=== PATIENT | female | born 1985 | race African-American/Black ===

== ENCOUNTER 2019-10-05 19:15 | Inpatient (IN) | payer OTHER ==
--- NOTE | 2019-10-05 20:52 | HP ---
Past Medical History - Admission Chief Complaint: srom History of Present Illness: srom History Source: Patient Limitations to Obtaining History: No Limitations - Past Medical History CARPENTER REFRIGERATOR: No: Alzheimer's, CVA, Dementia, Migraine, Multiple Sclerosis, Peripheral Neuropathy, Parkinson's, Seizure, Syncope, TIA, Vertigo, Other Cardiovascular: No: AFIB, Aneurysm, Aortic Insufficiency, Aortic Stenosis, CAD, CHF, Deep Vein Thrombosis, HTN, Hyperlipdemia, ME, Mitral Insufficiency, Mitral Stenosis, Murmur, Pulmonary Hypertension, Other Pulmonary: No: Asthma, Bronchitis, Cancer, COPD, O2 Dependent, Pneumonia, Previously Intubated, Pulmonary Embolus, Pulmonary Fibrosis, Sleep Apnea, Other Gastrointestinal: No: Ascites, Cancer, Constipation, Crohn's Disease, Diverticulitis, Diverticulosis, Esophageal Varices, Gastritis, GERD, GI Bleed, Hemorrhoids, Hiatal Hernia, Inflamatory Bowel Disease, Irritable Bowel Disease, Pancreatitis, Peptic Ulcer Disease, Ulcerative Colitis, Other Hepatobiliary: No: Cirrhosis, Cholelithiasis, Cholecystitis, Choledocholithiasis, Hepatitis A, Hepatitis B, Hepatitis C, Other Renal/: No: Renal Failure, Renal Inusuff, BPH, Cancer, Hematuria, Hemodialysis, Neurogenic Bladder, Renal Calculi, UTI, Other Reproductive: No: Ectopic , Endometriosis, Fibroids, PID, Polycystic Ovary Syndrome, Postmenopausal, Other Heme/Onc: No: Anemia, B12 Deficiency, Bleeding Disorder, Cancer, Current Chemoth erapy, Current Radiation Therapy, Hemochromatosis, Hypercoaguable State, Myeloproliferative Synd, Sickle Cell Disease, Sickle Cell Trait, Thrombocytopenia, Other Infectious Disease: No: AIDS, C-Diff, Herpes Zoster, HIV, MRSA, STD's, Tuberculosis, VREF, Other Psych: No: Addictions, Anxiety, Bipolar, Depression, Panic, Psychosis, Schizophrenia, Other Musculoskeletal: No: Bursitis, Chronic low back pain, Hemiparesis, Hemiplegia, Osteoarthritis, Paraplegia, Other Rheumatology: No: Fibromyalgia, Gout, Lupus, Rheumatoid Arthritis, Sarcoidosis, Vasculitis, Other ENT: No: Allergic Rhinitis, Sinusitis, Other Endocrine: No: William's Disease, Hank's Disease, Diabetes Insipidus, Diabetes Mellitus, Hyperparathyroidism, Hyperthyroidism, Hypothyroidism, Osteopenia, SIADH, Other Dermatology: No: Basal Cell, Cellulitis, Eczema, Melanoma, Psoriasis, Squamous Cell, Other - Past Surgical History Past Surgical History: No: None, AAA Repair, AICD, Amputation, Appendectomy, Arthrosocopy, AV Fistula/Graft, Bariatric Surgery, Breast Biopsy, Bypass, CABG, Carotid Endarterectomy, Cataract Removal, Cholecystectomy, Colectomy, Colonoscopy, Colostomy, Craniotomy, , Cystectomy, Hernia Repair, Hysterectomy, Ileal Conduit, Ileosotomy, Joint Replacement, Kidney Transplant, Laminectomy, Liver Transplant, Mastectomy, Nephrectomy, Oopherectomy, Orchiectomy, Permanent Pacemaker, Prostatectomy, Splenectomy, Stent, Thoracotomy, TURP, Tonsillectomy, Tubal Ligation, Upper Endoscopy, Valve Replacement, Vasectomy, Vein Stripping/Ligation Hx Myomectomy: No Hx Transabdominal Cerclage: No - Advance Directives Advance Directives: Yes: Living Will - Smoking History Smoking history: Never smoked Have you smoked in the past 12 months: No - Alcohol/Substance Use Hx Alcohol Use: No History of Substance Use: reports: None - Social History Usual Living Arrangement: Yes: With Significant Other Do you think of yourself as: Straight/Heterosexual ADL: Independent History of Recent Travel: No Family Medical History Family History: Denies Review of Systems - Review of Systems Constitutional: reports: No Symptoms Eyes: reports: No Symptoms HENT: reports: No Symptoms Neck: reports: No Symptoms Cardiovascular: reports: No Symptoms Respiratory: reports: No Symptoms Gastrointestinal: reports: No Symptoms Genitourinary: reports: No Symptoms Breasts: reports: No Symptoms Reported Musculoskeletal: reports: No Symptoms Integumentary: reports: No Symptoms Neurological: reports: No Symptoms Endocrine: reports: No Symptoms Hematology/Lymphatic: reports: No Symptoms Psychiatric: reports: No Symptoms Physical Exam - Maternity Constitutional: Yes: Well Nourished, No Distress, Calm Eyes: Yes: WNL, Conjunctiva Clear, EOM Intact HENT: Yes: WNL, Atraumatic, Normocephalic Neck: Yes: WNL, Supple, Trachea Midline Cardiovascular: Yes: WNL, Regular Rate and Rhythm Lungs: Clear to auscultation Breast(s): Yes: WNL - Abdominal Exam/OB Fundal Height: 40 Number of Fetuses: Single Presentation: Vertex Contractions: Yes Intensity: Mild Monitor Mode: External Heart Rate (range): 150 Heart Rate Location: [facility] Category: I Accelerations: Uniform Decelerations: None - Vaginal Exam/OB Vaginal Bleeding: No Speculum Exam: No Dilatation (cm): 2 Effacement (%): 50 Amniotic Membrane Status: Ruptured Amniotic Fluid: Yes: Clear Presentation: Vertex/Position Station: -2 - Physical Exam Musculoskeletal: Yes: WNL Extremities: Yes: WNL Edema: Yes Edema: LUE: 1+, RUE: 1+, LLE: 1+, RLE: 1+ Integumentary: Yes: WNL Deep Tendon Reflex Grade: Normal +2 ...Motor Strength: WNL Psychiatric: Yes: WNL, Alert, Oriented Hemorrhage Risk Assessment - Risk Factors Medium Risk Factors: Yes: None High Risk Factors: Yes: None Risk Score: 1 Risk Level: Medium Risk Assessment/Plan for augmentation
[2019-10-05] MEDS ORDERED: DEXTROSE 5%-LACTATED RINGERS 1,000 ML IV SCH (21:00)
[2019-10-05] MEDS ORDERED: OXYTOCIN 30 UNITS in 0.9% NS 30 UNIT/500 ML INFUS.BAG IVPB SCH (21:00)
[2019-10-05 22:02] LABS: BASO % 0.5 % (0-2.0); EOS % 0.3 % (0-4.5); HEMATOCRIT 34.6 % (32.4-45.2); HEMOGLOBIN 11.5 GM/dL (10.7-15.3); MCH 31.2 pg (25.7-33.7); MCHC 33.4 g/dl (32.0-36.0); MEAN CELL VOLUME 93.4 fl (80-96); MEAN PLT VOLUME 10.1 fl (7.5-11.1); MONO % 5.6 % (3.8-10.2); NEUT % 68.6 % (42.8-82.8); PLATELET COUNT 213 K/MM3 (134-434); RDW 13.5 % (11.6-15.6)
[2019-10-05 22:04] VITALS: BMI 33.8
[2019-10-05 22:09] LABS: INR 0.94 (0.83-1.09); PROTHROMBIN TIME (PATIENT) 11.1 SEC (9.7-13.0)
[2019-10-05 22:12] LABS: ACTIVATED PTT 27.1 SECONDS (25.2-36.5)
[2019-10-05 22:21] LABS: BLOOD UREA NITROGEN 10.4 mg/dL (7-18); CALCIUM 9.6 mg/dL (8.5-10.1); CREATININE 0.6 mg/dL (0.55-1.3); POTASSIUM 4.2 mmol/L (3.5-5.1)
[2019-10-05] MEDS ORDERED: PCA PUMP NR ONE (22:21)
[2019-10-05] MEDS ORDERED: FENTANYL/BUPIVACAINE/NS/PF - PCEA - 50 ML DISP.SYRIN EP ONE (22:21)
[2019-10-05] MEDS ORDERED: NALOXONE HCL 0.4 MG/ML VIAL IVPUSH PRN (22:24)
[2019-10-05] MEDS ORDERED: BUPIVACAINE HCL/PF 0.25% (2.5MG/ML) 10 ML VIAL ONE (22:27)
[2019-10-05] MEDS: FENTANYL/BUPIVACAINE/NS/PF - PCEA - 50 ML DISP.SYRIN EP SCH (22:37)
[2019-10-06] MEDS ORDERED: ELECTROLYTE-148 SOLN 500 ML IV ONE (00:13)
[2019-10-06] MEDS ORDERED: ELECTROLYTE-148 SOLN 1,000 ML IV SCH ×2 (00:15)
[2019-10-06] MEDS ORDERED: FENTANYL/BUPIVACAINE/NS/PF - PCEA - 50 ML DISP.SYRIN EP ONE ×2 (03:05→07:09)
[2019-10-06] MEDS ORDERED: PCA PUMP NR ONE (07:09)
[2019-10-06] MEDS ORDERED: CITRIC ACID/SODIUM CITRATE 30 ML UNIT-DOSE CUP PO ONE (08:04)
--- NOTE | 2019-10-06 08:10 | PN ---
Progress Note (short form) - Note Progress Note: 8 am, Cervix is still 6 cm, -2, op,few late deccels, for c s ,
--- NOTE | 2019-10-06 08:11 | PN ---
Progress Note (short form) - Note Progress Note: 3 am, 5 cm , nst reactive, a few deccels, continue pitocin and epidural,
--- NOTE | 2019-10-06 08:12 | PN ---
Progress Note (short form) - Note Progress Note: 5 am, nurses called, recurrent late and variable deccels, will hold pitocin and recovered , then pitocin again
--- NOTE | 2019-10-06 08:13 | PN ---
Progress Note (short form) - Note Progress Note: 11pm last night, 3 to 4 cm, -2, 60%, will continue pitocin and epidural
[2019-10-06] MEDS ORDERED: ONDANSETRON 4 MG/2 ML VIAL IVPUSH PRN (08:19)
[2019-10-06] MEDS ORDERED: ceFAZolin SODIUM 1 GM VIAL ONE (08:54)
[2019-10-06] MEDS ORDERED: OXYTOCIN 10 UNITS/ML VIAL ONE ×2 (09:01→09:03)
[2019-10-06] MEDS ORDERED: morphine SULFATE/PF 0.5 MG/ML (2cc Syringe - QUVA) ONE ×3 (09:36)
[2019-10-06] MEDS ORDERED: METHYLERGONOVINE MALEATE 0.2 MG/1 ML AMP IM PRN (09:50)
[2019-10-06] MEDS ORDERED: IBUPROFEN 800 MG/8 ML IJ IVPB PRN (09:50)
[2019-10-06] MEDS ORDERED: oxyCODONE HCL 5 MG TABLET PO PRN ×2 (09:50)
[2019-10-06] MEDS ORDERED: SENNOSIDES/DOCUSATE COMBO (SENNA PLUS) TABLET (UD) PO PRN (09:50)
--- NOTE | 2019-10-06 09:57 | OP ---
Operative Note - Note: Operative Date: 10/06/19 Pre-Operative Diagnosis: f t progress, non reassuring fht Operation: primary lt c s Findings: op, can x 1 Post-Operative Diagnosis: Same as Pre-op Surgeon: Sammy Robison Academic Associate: Blayne Rogers Anesthesiologist/SHOE HANDLER: Vaishali Blankenship Anesthesia: Epidural Estimated Blood Loss (mls): 500 (no complications ) Operative Report Dictated: Yes
[2019-10-06] MEDS ORDERED: OXYTOCIN 20 UNITS in 0.9% NS 20 UNIT/1,000 ML INFUS.BAG IV SCH (10:00)
[2019-10-06] MEDS: ACETAMINOPHEN 1000 MG/100 ML VIAL (NON FORMULARY) IVPB PRN (10:00)
[2019-10-06] MEDS: PRENATAL VITAMINS W/ FOLIC ACID TABLET (FP) PO SCH (11:04)
[2019-10-06] MEDS ORDERED: OXYTOCIN 20 UNITS in 0.9% NS 20 UNIT/1,000 ML INFUS.BAG IV ONE (11:19)
[2019-10-07] MEDS: ACETAMINOPHEN 1000 MG/100 ML VIAL (NON FORMULARY) IVPB PRN (04:15)
[2019-10-07 08:00] LABS: BASO % 0.2 % (0-2.0); EOS % 0.5 % (0-4.5); HEMATOCRIT 29.2 % (32.4-45.2); HEMOGLOBIN 9.5 GM/dL (10.7-15.3); LYMPH % 13.8 % (8-40); MCH 30.6 pg (25.7-33.7); MCHC 32.7 g/dl (32.0-36.0); MEAN CELL VOLUME 93.6 fl (80-96); MEAN PLT VOLUME 9.7 fl (7.5-11.1); MONO % 5.2 % (3.8-10.2); NEUT % 80.3 % (42.8-82.8); PLATELET COUNT 175 K/MM3 (134-434); RBC 3.12 M/mm3 (3.60-5.2); RDW 13.4 % (11.6-15.6); WHITE BLOOD COUNT 14.4 K/mm3 (4.0-10.0)
[2019-10-07] MEDS ORDERED: BISACODYL 10 MG SUPP.RECT RC PRN (09:50)
[2019-10-07] MEDS: PRENATAL VITAMINS W/ FOLIC ACID TABLET (FP) PO SCH (10:08)
[2019-10-07] MEDS: ACETAMINOPHEN 325 MG TABLET (FP) PO PRN ×3 (10:40→20:27)
[2019-10-07] MEDS: IBUPROFEN 600 MG TABLET (FP) PO PRN ×3 (10:40→20:28)
--- NOTE | 2019-10-07 10:58 | PN ---
Post Progress Note Post Day: 1 Type of Delivery: Primary C/S Vital Signs: Vital Signs Temperature 98.2 F 10/07/19 04:27 Pulse Rate 81 10/07/19 04:27 Respiratory Rate 20 10/07/19 06:00 Blood Pressure 118/74 10/07/19 04:27 O2 Sat by Pulse Oximetry (%) 96 10/06/19 14:00 Breast Exam: Yes: Soft Uterus: Yes: Fundus Firm, Fundus below umbilicus, Non-tender Incision: Yes: Dressing dry and intact, Sutures intact Abdomen/GI: Yes: Abdomen soft, Passing flatus, Tolerating PO Lochia: Yes: Serosa Lochia, amount: Small Extremities: Yes: Calves non-tender Perineum: Yes: Intact Activity: Ambulating - Labs Labs: CBC WBC 14.4 K/mm3 (4.0-10.0) H 10/07/19 07:17 RBC 3.12 M/mm3 (3.60-5.2) L 10/07/19 07:17 Hgb 9.5 GM/dL (10.7-15.3) L 10/07/19 07:17 Hct 29.2 % (32.4-45.2) L D 10/07/19 07:17 MCV 93.6 fl (80-96) 10/07/19 07:17 MCH 30.6 pg (25.7-33.7) 10/07/19 07:17 MCHC 32.7 g/dl (32.0-36.0) 10/07/19 07:17 RDW 13.4 % (11.6-15.6) 10/07/19 07:17 Plt Count 175 K/MM3 (134-434) 10/07/19 07:17 MPV 9.7 fl (7.5-11.1) 10/07/19 07:17 Absolute Neuts (auto) 11.5 K/mm3 (1.5-8.0) H 10/07/19 07:17 Neutrophils % 80.3 % (42.8-82.8) 10/07/19 07:17 Lymphocytes % 13.8 % (8-40) D 10/07/19 07:17 Monocytes % 5.2 % (3.8-10.2) 10/07/19 07:17 Eosinophils % 0.5 % (0-4.5) 10/07/19 07:17 Basophils % 0.2 % (0-2.0) 10/07/19 07:17 Nucleated RBC % 0 % (0-0) 10/07/19 07:17 Assessment/Plan doing well, dc pt home tomorrow
--- NOTE | 2019-10-07 10:59 | DS ---
Physical Exam-HEATING AND AIR CONDITIONING MECHANIC Vital Signs: Vital Signs Temperature 98.2 F 10/07/19 04:27 Pulse Rate 81 10/07/19 04:27 Respiratory Rate 20 10/07/19 06:00 Blood Pressure 118/74 10/07/19 04:27 O2 Sat by Pulse Oximetry (%) 96 10/06/19 14:00 Constitutional: Yes: Well Nourished, No Distress, Calm Eyes: Yes: WNL, Conjunctiva Clear, EOM Intact HENT: Yes: WNL, Atraumatic, Normocephalic Neck: Yes: WNL, Supple, Trachea Midline Cardiovascular: Yes: WNL, Regular Rate and Rhythm Respiratory: Yes: WNL, Regular, CTA Bilaterally Gastrointestinal: Yes: WNL, Normal Bowel Sounds, Soft ...Rectal Exam: Yes: WNL Renal/: Yes: WNL Pelvis: Yes: WNL External Genitalia: Yes: Normal Internal Exam Deferred: Yes Vaginal Exam: Yes: Normal Cervix: Yes: Normal Uterus: Yes: Normal ....Post : Yes: Uterus firm, Uterus non-tender Breast(s): Yes: WNL Musculoskeletal: Yes: WNL Extremities: Yes: WNL Edema: Yes Integumentary: Yes: WNL Wound/Incision: Yes: Clean/Dry, Well Approximated Neurological: Yes: WNL, Alert, Oriented ...Motor Strength: WNL Psychiatric: Yes: WNL, Alert, Oriented Labs: CBC, BMP 10/07/19 07:17 10/05/19 21:45 Delivery - Delivery Type of Anesthesia: Epidural Episiotomy/Laceration: None EBL (cc): 500 Delivery, Single - Stages of Labor Date 1st Stage Initiatied: 10/05/19 Time 1st Stage Initiated: 22:00 Date of Delivery: 10/06/19 Time of Delivery: 09:02 Time Placenta Delivered: 09:04 - Condition of Infant Rn Angiography/Creative Specialist Present: Yes Gender: Female Weight: 2.92 kg Position: OP Total Hours ROM (Hrs/Mins): [id number] - 1 Minute Total Score: 9 5 Minutes Total Score: 9 - Feeding Plan Initial Plan: Elected not to breastfeed exclusively throughout hospitalization Discharge Summary Problems reviewed: Yes Reason For Visit: LABOR Procedures: Principal: c s Other Procedures: none Condition: Good - Instructions Diet, Activity, Other Instructions: Physical activity Resume your normal everyday activity as tolerated no heavy lifting or exercise until seen by your surgeon. You may walk unlimited apurva of and climb stairs. You may resume driving the car when you feel safe and comfortable behind the wheel. No sexual activity as instructed. Wound care If you have a bandage, leave it on, and keep dry for 48-72 hours. After that time discard the outer bandage. If they are tapes on the skin under the out of bandage leave them in place. They will peel off in the next 7 to 10 days. Do Not Peel them off. You may shower the day after surgery. If there are tapes present on the skin, you may shower over them. Diet There are no dietary restrictions. Eat healthy, high-fiber foods. Drink 6 to 8 glasses of liquid each day. This will assist in keeping your bowels are regular. Pain management You may take Tylenol or acetaminophen or Ibuprofen (for example, Motrin, Advil etc.) from my pain prescription medication is ordered should be taken as prescribed for moderate to severe pain. Call MD for any of the following:cll dr restrepo for 2 weeks appointment Severe pain not relieved by medication Fever of 101 or higher Excessive bleeding or drainage on dressing Inability to urinate Disposition: HOME - Home Medications Prescription Drug Monitoring Program (I-STOP) results: I-STOP reviewed and no issues identified
--- NOTE | 2019-10-07 11:09 | PN ---
Progress Note, Physician Chief Complaint: s/p c section post op day one History of Present Illness: under spinal anesthesia with duramorph for post op pain control - Current Medication List Current Medications: Active Medications Acetaminophen (Tylenol -) 650 mg PO Q4H PRN PRN Reason: FEVER Last Admin: 10/07/19 10:40 Dose: 650 mg Documented by: Bisacodyl (Dulcolax Suppository -) 10 mg RC PRN PRN PRN Reason: CONSTIPATION Diphenhydramine HCl (Benadryl Injection -) 25 mg IVPUSH Q4H PRN PRN Reason: Pruritis Last Admin: 10/06/19 21:24 Dose: 25 mg Documented by: Fentanyl/Bupivacaine/Sodium Chlor (Bupivicaine 0.125%/Fentanyl 2mcg/Ml Pcea) 0 ml EP ASDIR GÉNESIS; Protocol Last Admin: 10/05/19 22:37 Dose: 50 ml Documented by: Dextrose/Lactated Ringer's (D5-Lr -) 1,000 mls @ 125 mls/hr IV ASDIR GÉNESIS Last Admin: 10/05/19 21:30 Dose: 125 mls/hr Documented by: Oxytocin/Sodium Chloride (Normal Saline+30 Units Oxytocin) 30 unit in 500 mls @ 1 mls/hr IVPB TITR [facility]; Protocol Last Titration: 10/06/19 07:56 Dose: 0 unit/hr, 0 mls/hr Documented by: Parenteral Electrolytes (Plasma-Lyte 148 -) 1,000 mls @ 125 mls/hr IV ASDIR GÉNESIS Last Admin: 10/06/19 00:30 Dose: 125 mls/hr Documented by: Oxytocin/Sodium Chloride (Normal Saline+20 Units Oxytocin -) 20 unit in 1,000 mls @ 125 mls/hr IV ASDIR GÉNESIS Last Admin: 10/06/19 11:04 Dose: 125 mls/hr Documented by: Ibuprofen (Motrin -) 600 mg PO Q4H PRN PRN Reason: PAIN LEVEL 1 - 3 Last Admin: 10/07/19 10:40 Dose: 600 mg Documented by: Ibuprofen (Caldolor Injection -) 800 mg IVPB Q8H PRN PRN Reason: PAIN LEVEL 6-10 Last Admin: 10/06/19 13:52 Dose: 800 mg Documented by: Methylergonovine Maleate (Methergine Injection -) 0.2 mg IM Q4H PRN PRN Reason: Excessive Bleeding (L&D) Naloxone HCl (Narcan -) 0.4 mg IVPUSH PRN PRN PRN Reason: Sedation Ondansetron HCl (Zofran Injection) 4 mg IVPUSH Q4H PRN PRN Reason: NAUSEA Oxycodone HCl (Roxicodone -) 5 mg PO Q4H PRN PRN Reason: PAIN LEVEL 4 - 6 Oxycodone HCl (Roxicodone -) 10 mg PO Q4H PRN PRN Reason: PAIN LEVEL 7 - 10 Multivit/Folic Acid/Iron ( Vitamins (Sjr) -) 1 tab PO DAILY GÉNESIS Last Admin: 10/07/19 10:08 Dose: 1 tab Documented by: Senna/Docusate Sodium (Pericolace -) 2 tablet PO HS PRN PRN Reason: CONSTIPATION Simethicone (Mylicon -) 80 mg PO Q4H PRN PRN Reason: GAS - Objective Vital Signs: Vital Signs Temperature 98.2 F 10/07/19 04:27 Pulse Rate 81 10/07/19 04:27 Respiratory Rate 20 10/07/19 06:00 Blood Pressure 118/74 10/07/19 04:27 O2 Sat by Pulse Oximetry (%) 96 10/06/19 14:00 Constitutional: Yes: Well Nourished Cardiovascular: Yes: WNL Respiratory: Yes: WNL Gastrointestinal: Yes: WNL Labs: CBC, BMP 10/07/19 07:17 10/05/19 21:45 INR, PTT INR 0.94 (0.83-1.09) 10/05/19 21:45 Assessment/Plan No adverse anesthetic complications, pain controlled, dept of anesthesiology dylan núñez sign off care at this time
[2019-10-07] MEDS: FENTANYL/BUPIVACAINE/NS/PF - PCEA - 50 ML DISP.SYRIN EP SCH (19:51)
[2019-10-07] MEDS: SIMETHICONE 80 MG TAB.CHEW (FP) PO PRN (20:29)
[2019-10-07 23:13] VITALS: TEMP 97.9
[2019-10-08] MEDS: ACETAMINOPHEN 325 MG TABLET (FP) PO PRN ×2 (05:02→10:12)
[2019-10-08] MEDS: IBUPROFEN 600 MG TABLET (FP) PO PRN ×2 (05:02→10:12)
[2019-10-08] MEDS: SIMETHICONE 80 MG TAB.CHEW (FP) PO PRN ×2 (05:03→10:13)
[2019-10-08] MEDS: PRENATAL VITAMINS W/ FOLIC ACID TABLET (FP) PO SCH (10:13)
[2019-10-08 13:57] VITALS: BP 130/77; PULSE 86
--- NOTE | 2019-10-08 19:30 | OP ---
DATE OF OPERATION: 10/06/2019 PREOPERATIVE DIAGNOSIS: Failure to progress and nonreassuring heart tracing. POSTOPERATIVE DIAGNOSIS: Cord around the neck x1, occiput posterior presentation. PROCEDURE: Primary low transverse section. SURGEON: Sammy Robison MD. PUG MILL OPERATOR: TYREE Mendez. ANESTHESIA: Epidural. ANESTHESIOLOGIST: Vaishali Blankenship MD. INDICATION: A 34-year-old female patient, 39 weeks , came into the hospital with a spontaneous rupture of membranes. Patient was checked in the office and was referred into the hospital, and the patient was grossly ruptured. Patient was 1-2 cm posterior, 50%. So patient was admitted, and patient has early mild contractions q.5 minutes, so Pitocin was added, and patient was started with Pitocin around 8, 9 o'clock at night, and the patient had Pitocin all night, and patient's cervix progressed to 4, then, 5, then 6, and never progressed after that. And the patient started having some variable and late decelerations throughout the patient 4 to 5 hours. So patient's cervix still remains 6 cm for more than 5 to 6 hours, and is starting to show some variable and late decelerations, and patient all the risks and benefits and alternatives explained to the patient, and the baby appeared to be OP presentation this time by vaginal examination. So the patient was explained, patient was taken to the OR for primary low transverse section as above indications. DESCRIPTION OF PROCEDURE: Patient was placed on operating table in supine position. Patient already had epidural anesthesia, and was re-topped off, and patient had Pfannenstiel incision. Incision was made through skin, subcutaneous tissue, until the fascia was nicked in the midline. The fascia was extended bilaterally. Intraperitoneal cavity was entered, bladder flap was created. Low transverse section of uterus was entered, baby delivered from LOP position. Baby was handed over to the second vp hr assessment after umbilical cord was doubly clamped and cut. Cord blood gas was not obtained. Placenta was removed. Uterus was closed in single layer, first layer interlocking Vicryl suture, good hemostasis, and both gutters clean. Both ovaries, fallopian tubes, uterus were within normal limits, no complications. Tolerated procedure well. Peritoneum was closed. Fascia was closed. Skin was closed. Transferred to recovery room in stable condition. Blood loss was about 500 mL. MD GLO HOLGUIN/[id number]
--- NOTE | 2019-10-11 17:14 | PATH ---
Surgical Pathology Report Patient Name: ZEUS PANDEY Med. Rec. #: [id number] /Age/Gender: 1985 (Age: 34) / F Account: [id number] Location: [facility] OBS/BACK PADDER Taken: 10/06/2019 Received: 10/07/2019 Reported: 10/11/2019 Physicians: Sammy Robison MD Specimen(s) Received PLACENTA Clinical History at 39.2 weeks primary Final Diagnosis PLACENTA, SECTION: 418 G THIRD TRIMESTER PLACENTA WITH TRIVASCULAR UMBILICAL CORD AND FOCAL MILD ACUTE SUBCHORIONITIS. Electronically Signed Liv Giron M.D. Gross Description The specimen is received fresh labeled placenta and is a 418 gram, 17.5 x 15.0 x 2.5 cm. placenta with attached membranes and umbilical cord. The attached membranes are [place], translucent with focal opacities and insert marginally. The umbilical cord measures 0.5 cm. in length and averages 1 cm. in diameter. The cord inserts eccentrically, 1.5 cm. to the nearest margin. No true knots or strictures are identified. Cut surface of the umbilical cord reveals 3 vessels. The surface is byrd-blue with minimal fibrin deposition and appropriate caliber vessels. The maternal surface is red-brown with focal defects. Sectioning reveals red-brown, spongy parenchyma. No lesions are identified. Legal Document Assistant sections are submitted in three cassettes as follows: 1- membrane rolls and umbilical cord; 2-3- full thickness sections of placenta. [facility]
== END 2019-10-08 15:10 | disposition home or self-care (01) | DRG 788 ==
LOC: JLDR 19:15 → J3W 10-06 11:30
PROVIDERS: ADMIT Obstetrics & Gynecology; ATTEND Obstetrics & Gynecology
PROC: 10D00Z1 Extraction of Products of Conception, Low, Open Approach (ICD-10-PCS; principal; 2019-10-06)
DX: O36.8330 Maternal care for abnormalities of the fetal heart rate or rhythm, third trimester, not applicable or unspecified (principal); O62.1 Secondary uterine inertia; O69.81X0 Labor and delivery complicated by cord around neck, without compression, not applicable or unspecified; Z3A.39 39 weeks gestation of pregnancy; Z37.0 Single live birth
CPT/HCPCS: 36415; 80048; 85025; 85610; 85730; 86780; 86850; 86900; 86901; 87389; 88307-TC; J0131; U0003

== ENCOUNTER 2021-02-28 04:05 | Inpatient (IN) | payer OTHER ==
[2021-02-28 06:39] LABS: BASO % 0.2 % (0-2.0); HEMATOCRIT 32.8 % (32.4-45.2); HEMOGLOBIN 11.3 GM/dL (10.7-15.3); LYMPH % 16.2 % (8-40); MCH 30.8 pg (25.7-33.7); MCHC 34.5 g/dl (32.0-36.0); MEAN CELL VOLUME 89.3 fl (80-96); MEAN PLT VOLUME 8.8 fl (7.5-11.1); MONO % 4.3 % (3.8-10.2); NEUT % 79.3 % (42.8-82.8); PLATELET COUNT 230 10^3/uL (134-434); RBC 3.67 M/mm3 (3.60-5.2); RDW 13.8 % (11.6-15.6)
[2021-02-28 06:44] LABS: INR 0.95 (0.83-1.09); PROTHROMBIN TIME (PATIENT) 11.1 SEC (9.7-13.0)
[2021-02-28 06:52] VITALS: BMI 34.4
[2021-02-28 07:03] LABS: CREATININE 0.6 mg/dL (0.55-1.3)
[2021-02-28] MEDS ORDERED: PCA PUMP NR ONE (07:24)
[2021-02-28] MEDS ORDERED: FENTANYL/BUPIVACAINE/NS/PF - PCEA - 50 ML DISP.SYRIN EP ONE (07:28)
[2021-02-28] MEDS ORDERED: NALOXONE HCL 0.4 MG/ML VIAL IVPUSH PRN (07:58)
[2021-02-28] MEDS ORDERED: FENTANYL/BUPIVACAINE/NS/PF - PCEA - 50 ML DISP.SYRIN EP SCH (08:00)
[2021-02-28] MEDS ORDERED: LIDOCAINE 1%/EPI 1:100000 (20 ML MULTI DOSE VIAL) ONE (08:14)
[2021-02-28] MEDS ORDERED: OXYTOCIN 20 UNITS in 0.9% NS 20 UNIT/1,000 ML INFUS.BAG IV ONE ×2 (09:07→10:48)
[2021-02-28] MEDS ORDERED: LIDOCAINE HCL 1% PRESERVATIVE FREE - 30ML VIAL ONE (09:07)
[2021-02-28] MEDS ORDERED: ACETAMINOPHEN 325 MG TABLET (FP) PO PRN (10:09)
[2021-02-28] MEDS ORDERED: BENZOCAINE 20% 57 GM BOTTLE TP PRN (10:09)
[2021-02-28] MEDS ORDERED: oxyCODONE HCL 5 MG TABLET PO PRN (10:09)
[2021-02-28] MEDS ORDERED: BISACODYL 10 MG SUPP.RECT RC PRN (10:09)
[2021-02-28] MEDS ORDERED: METHYLERGONOVINE MALEATE 0.2 MG/1 ML AMP IM PRN (10:09)
[2021-02-28] MEDS ORDERED: BENZOCAINE 28 GM HEMORRHOIDAL OINTMENT TP PRN (10:09)
[2021-02-28] MEDS ORDERED: WITCH HAZEL 50% (TUCKS) 40 PAD/JAR PAD TP PRN (10:09)
[2021-02-28] MEDS ORDERED: DEXTROSE 5%-LACTATED RINGERS 1,000 ML IV SCH (10:15)
[2021-02-28] MEDS ORDERED: OXYTOCIN 20 UNITS in 0.9% NS 20 UNIT/1,000 ML INFUS.BAG IV SCH (10:15)
[2021-02-28] MEDS: IBUPROFEN 600 MG TABLET (FP) PO PRN ×3 (10:23→21:32)
[2021-02-28 13:45] LABS: POC NITRAZINE POS
[2021-02-28 20:24] LABS: HIV INTERPRETATION NEGATIVE (NEGATIVE)
[2021-03-01] MEDS: IBUPROFEN 600 MG TABLET (FP) PO PRN ×3 (06:21→20:39)
[2021-03-01 09:00] LABS: BASO % 0.3 % (0-2.0); EOS % 0.2 % (0-4.5); HEMATOCRIT 27.2 % (32.4-45.2); HEMOGLOBIN 9.2 GM/dL (10.7-15.3); LYMPH % 26.7 % (8-40); MCH 30.6 pg (25.7-33.7); MCHC 33.6 g/dl (32.0-36.0); MEAN CELL VOLUME 90.9 fl (80-96); MONO % 5.3 % (3.8-10.2); NEUT % 67.5 % (42.8-82.8); PLATELET COUNT 187 10^3/uL (134-434); WHITE BLOOD COUNT 10.6 K/mm3 (4.0-10.0)
[2021-03-01] MEDS: PRENATAL VITAMINS W/ FOLIC ACID TABLET (FP) PO SCH (10:01)
[2021-03-01] MEDS ORDERED: SENNOSIDES/DOCUSATE COMBO (SENNA PLUS) TABLET (UD) PO PRN (22:00)
[2021-03-02 10:29] VITALS: BP 121/80; PULSE 88; TEMP 99
[2021-03-02] MEDS: PRENATAL VITAMINS W/ FOLIC ACID TABLET (FP) PO SCH (12:14)
== END 2021-03-02 12:45 | disposition home or self-care (01) | DRG 807 ==
LOC: JDEL 04:05 → JLDR 05:50 → J3W 11:25
PROVIDERS: ADMIT Obstetrics & Gynecology; ATTEND Obstetrics & Gynecology
PROC: 10E0XZZ Delivery of Products of Conception, External Approach (ICD-10-PCS; principal; 2021-02-28)
PROC: 0W8NXZZ Division of Female Perineum, External Approach (ICD-10-PCS; 2021-02-28)
DX: O34.218 Maternal care for other type scar from previous cesarean delivery (principal); Z37.0 Single live birth; O66.41 Failed attempted vaginal birth after previous cesarean delivery; Z3A.38 38 weeks gestation of pregnancy
CPT/HCPCS: 36415; 59409; 80048; 83986-QW; 85025; 85610; 85730; 86780; 86850; 86900; 86901; 87389; C9803; U0003; U0005